=== PATIENT | male | born 1960 | race African-American/Black ===

== ENCOUNTER 2017-02-15 10:40 | Emergency (ER) | payer OTHER ==
--- NOTE | 2017-02-15 10:48 | ED Physician Documentation ---
General Adult - HISTORIAN Historian: patient - HPI Stated Complaint: right flank pain for one hour Chief Complaint: Flank Pain Onset: hours (1) Timing: other (comes and goes slightly improved at this time ) Severity: moderate Modifying Factors: he tried OTC meds and laying on ground did not help Context: right flank Quality: stabbing, sharp, burning and constant Further Comments: no Last known Well Date: 02/15/17 Last Known Well Time: 10:00 Last known Well Code/Unknown Code: Unknown - ROS CONST: sweating. denies: fever, recent illness, weakness, weight loss EYES/ENT: denies: problems with vision, sore throat CVS/RESP: denies: chest pain, shortness of breath, cough GI/: abdominal pain, nausea. denies: problems urinating, vomiting, diarrhea MS/SKIN/LYMPH: none NEURO/PSYCH: denies: headache, dizziness, tingling, numbness, difficulty walking , anxiety - PAST HX Past History: other (graves disease, diabetes, htn ) Other History: none Surgeries/Procedures: none Immunizations: referred to PCP Allergies/Adverse Reactions: Allergies Allergy/AdvReac Type Severity Reaction Status Date / Time No Known Allergies Allergy Verified 02/15/17 11:11 Home Medications: Ambulatory Orders Medication Instructions Recorded Ketorolac Tromethamine [Toradol] 10 mg PO QID PRN #20 tablet 02/15/17 Levothyroxine Sodium [Synthroid] 125 mcg PO DAILY 02/15/17 Liothyronine Sodium [Cytomel] 5 mcg PO BID 02/15/17 Lisinopril/Hydrochlorothiazide 1 tab PO DAILY 02/15/17 [Zestoretic] Metformin HCl [Metformin HCl ER] 1,000 mg PO BID 02/15/17 - SOCIAL HX Smoking History: quit greater than 1 year Alcohol Use: none Drug Use: none - FAMILY HX Family History: No - REVIEWED ASSESSMENTS Nursing Assessment Reviewed: Yes Vitals Reviewed: Yes Progress - Progress Progress: 1139: Pain is improved along with improved nausea. ED Results Lab/Radiology - Radiology Radiology Impressions: Examination: CT Abdomen/pelvis History: Right flank discomfort Comparison exams: None available Technique: CT Abdomen/pelvis without contrast protocol. Findings: Kidneys are symmetric in size. 4 mm calcification inferior calyx of the right kidney. No suspicious left-sided calcifications. Within the proximal right ureter at the ureteropelvic junction a 1.5 mm ureterolithiasis. Minimal proximal ureteric dilation. Remainder of the right ureter without abnormal dilation or calcification. Left ureter without calcification or dilation. Visualized bladder margins are within normal limits. Liver, spleen, left adrenal gland, pancreas and gallbladder are without irregularity given exam technique. No gallstone. 1.4 cm right adrenal enlargement - HU of 23. Abdominal aorta without peripheral atherosclerotic disease. No aneurysm. Cardiac silhouette not enlarged. No pericardial effusion. Bowel without contrast limiting evaluation. No evidence for acute mesenteric inflammation or free air. Stool throughout the large bowel limiting sensitivity. Appendix is visualized and is without inflammatory changes. Osseous structures demonstrate degenerative changes. Lung bases demonstrate dependent atelectasis. No effusion. Impression: Mildly obstructing proximal right 1.5 mm ureterolithiasis at the ureteropelvic junction. Right nephrolithiasis. No evidence for acute abdominal inflammatory process. No abnormal bowel dilation. No gallstone. 1.4 cm right adrenal enlargement. Does not fit strict CT criteria for adenoma. Consider obtaining MRI if clinically warranted. Electronically signed on Feb 15, 2017 11:43:04 AM CDT by: Philippe Loredo General Adult Physical Exam - PHYSICAL EXAM GENERAL APPEARANCE: no distress EENT: eye inspection normal NECK: normal inspection RESPIRATORY: no resp distress, chest non-tender, breath sounds normal CVS: reg rate & rhythm, heart sounds normal, equal pulses, no murmur ABDOMEN: soft, normal bowel sounds, no distension. No: guarding, splenomegaly BACK: normal inspection, CVA tenderness (R) (mild per his report at this time ) SKIN: warm/dry, normal color EXTREMITIES: non-tender NEURO: oriented X3, CN's nml as tested, motor nml, sensation nml Discharge Clincal Impression: Ureterolithiasis Prescriptions: Ketorolac Tromethamine [Toradol] 10 mg PO QID PRN #20 tablet PRN Reason: as needed for pain Referrals: Primary Doctor,No [Primary Care Provider] - 2 Days Comments: Follow up with PCP, Strain urine, drink plenty of water, and possible referral to urology Condition: Stable Disposition: 01 HOME, SELF-CARE Decision to Admit: NO Date of Decison to Admit: 02/15/17 Decision Time: 11:48
[2017-02-15] MEDS ORDERED: 0.9 % SODIUM CHLORIDE 1,000 ML IV ONE (10:51)
[2017-02-15] MEDS ORDERED: KETOROLAC TROMETHAMINE 30 MG/1ML VIAL IVP ONE (10:51)
[2017-02-15] MEDS ORDERED: ONDANSETRON HCL/PF 4 MG/ 2ML VIAL IVP ONE (10:52)
[2017-02-15 11:03] LABS: EOSINOPHILS % 0.9 % (0.0-6.8); MEAN CORPUSCULAR HEMOGLOBIN 33.4 pg (28.0-34.0); MEAN CORPUSCULAR VOLUME 92.5 fl (80.0-100.0); MONOCYTES % 8.4 % (0.0-11.0); NEUTROPHILS # 1.6 # k/uL (1.4-7.7)
[2017-02-15 11:16] LABS: eGFR (African) > 60; eGFR (Non-African) > 60
[2017-02-15] MEDS ORDERED: TAMSULOSIN HCL 0.4 MG CAP.ER.24H PO ONE (11:29)
[2017-02-15 12:07] VITALS: BP 120/73
--- NOTE | 2017-02-15 14:23 | Diagnostic Imaging Report ---
JERI SCHNEIDER [facility] [id number] [facility] [address] [place], [place]. [address] Report Submission Date: Feb 15, 2017 11:43:04 AM CDT Patient Study Name: CLEMENCIA MALAGON Date: Feb 15, 2017 11:04:33 AM CDT Modality Type: CT\SR Gender: M Description: CT ABD & PELVIS W/O CO : 64 Institution: [facility] Physician: JERI SCHNEIDER Examination: CT Abdomen/pelvis History: Right flank discomfort Comparison exams: None available Technique: CT Abdomen/pelvis without contrast protocol. Findings: Kidneys are symmetric in size. 4 mm calcification inferior calyx of the right kidney. No suspicious left-sided calcifications. Within the proximal right ureter at the ureteropelvic junction a 1.5 mm ureterolithiasis. Minimal proximal ureteric dilation. Remainder of the right ureter without abnormal dilation or calcification. Left ureter without calcification or dilation. Visualized bladder margins are within normal limits. Liver, spleen, left adrenal gland, pancreas and gallbladder are without irregularity given exam technique. No gallstone. 1.4 cm right adrenal enlargement - HU of 23. Abdominal aorta without peripheral atherosclerotic disease. No aneurysm. Cardiac silhouette not enlarged. No pericardial effusion. Bowel without contrast limiting evaluation. No evidence for acute mesenteric inflammation or free air. Stool throughout the large bowel limiting sensitivity. Appendix is visualized and is without inflammatory changes. Osseous structures demonstrate degenerative changes. Lung bases demonstrate dependent atelectasis. No effusion. Impression: Mildly obstructing proximal right 1.5 mm ureterolithiasis at the ureteropelvic junction. Right nephrolithiasis. No evidence for acute abdominal inflammatory process. No abnormal bowel dilation. No gallstone. 1.4 cm right adrenal enlargement. Does not fit strict CT criteria for adenoma. Consider obtaining MRI if clinically warranted. Electronically signed on Feb 15, 2017 11:43:04 AM CDT by: Philippe VALADEZ
== END 2017-02-15 12:05 | disposition home or self-care (01) ==
LOC: ED 10:40
DX: N20.1 Calculus of ureter (principal)
CPT/HCPCS: 74176; 80053; 85025; J1885; J2405; J7030; 96361; 96374; 96375; 99283; S1016